=== PATIENT | female | born 1940 | race Caucasian/White ===

== ENCOUNTER 2018-04-14 13:49 | Inpatient (IN) ==
[2018-04-14 15:35] LABS: Baso % (Auto) 0.8 % (0.0-2.0); Eos # (Auto) 0.3 th/mm3 (0.0-0.4); Eos % (Auto) 5.1 % (0.0-4.0); Lymph # (Auto) 0.9 th/mm3 (1.0-4.8); Lymph % (Auto) 17.7 % (9.0-44.0); Mean Corpuscular HGB Conc 31.5 % (32.0-36.0); Mean Corpuscular Hemoglobin 24.2 pg (27.0-34.0); Mean Corpuscular Volume 76.7 fL (80.0-100.0); Mean Platelet Volume 8.5 fL (7.0-11.0); Mono # (Auto) 0.5 th/mm3 (0.0-0.9); Mono % (Auto) 10.6 % (0.0-8.0); Neut # (Auto) 3.4 th/mm3 (1.8-7.7); Neut % (Auto) 65.8 % (16.0-70.0); Platelet Count 240 th/mm3 (150-450); Red Blood Count 2.28 mil/mm3 (4.00-5.30); White Blood Count 5.1 th/mm3 (4.0-11.0)
[2018-04-14 15:46] LABS: Hematocrit 17.5 % (35.0-46.0); Hemoglobin 5.5 gm/dL (11.6-15.3)
--- NOTE | 2018-04-14 15:56 | ED ---
HPI General Chief complaint: Weakness Stated complaint: Poss Blood Transfusion Time Seen by Provider: 04/14/18 14:33 Source: patient Mode of arrival: ambulatory Limitations: no limitations History of Present Illness HPI Narrative: 78 yo F c/o low hgb. Pt has cbc drawn approx 5 days rior and hgb was 7.0 down from 11.0 from approx 1 month prior. SOB and JENKINS reported with palpitation. + Hx anemia with unknown etiology. Pt reports similar prior episodes. Duration of SOB/JENKINS approx one week. No cp at rest. Pt reports symptoms are similar to prior episodes of anemia. Related Data Home Medications Medication Instructions Recorded Confirmed atenolol [Tenormin] 25 mg PO DAILY 04/14/18 04/14/18 atorvastatin [Lipitor] 40 mg PO DAILY 04/14/18 04/14/18 clonazepam [Klonopin] 1 mg PO DAILY PRN 04/14/18 04/14/18 clopidogrel [Plavix] 75 mg PO DAILY 04/14/18 04/14/18 ezetimibe 10 mg PO DAILY 04/14/18 04/14/18 irbesartan 150 mg PO BID 04/14/18 04/14/18 nifedipine 30 mg PO DAILY 04/14/18 04/14/18 Allergies Allergy/AdvReac Type Severity Reaction Status Date / Time No Known Allergies Allergy Verified 04/14/18 14:08 Review of Systems ROS: all other systems reviewed are negative [facility] Social History Social History Substance History: No History of Abuse Second Hand Smoke Exposure: No Smoking Status: Former smoker How Often Do You Have a Drink Containing Alcohol: 4 or more times a week Recent Travel in [facility] within the Last 8 Weeks: No Recent Out of Country Travel within the Last 8 Weeks: No Immunization History Tetanus Immunization: <5 Years Exam Narrative Exam Narrative: GENERAL: 78 yo F, WNWD, NAD SKIN: Focused skin assessment warm/dry. HEAD: Atraumatic. Normocephalic. EYES: Pupils equal and round. No scleral icterus. No injection or drainage. ENT: No nasal bleeding or discharge. Mucous membranes pink and moist. NECK: Trachea midline. No JVD. CARDIOVASCULAR: Regular rate and rhythm. No murmur appreciated. RESPIRATORY: No accessory muscle use. Clear to auscultation. Breath sounds equal bilaterally. GASTROINTESTINAL: Abdomen soft, non-tender, nondistended. Hepatic and splenic margins not palpable. MUSCULOSKELETAL: No obvious deformities. No clubbing. No cyanosis. No edema. NEUROLOGICAL: Awake and alert. No obvious cranial nerve deficits. Motor grossly within normal limits. Normal speech. PSYCHIATRIC: Appropriate mood and affect; insight and judgment normal. Course Initial Documented Vital Signs Temperature 98.8 F 04/14/18 14:05 Pulse Rate 84 04/14/18 14:05 Respiratory Rate 18 04/14/18 14:05 Blood Pressure 152/69 H 04/14/18 14:05 Pulse Oximetry 100 04/14/18 14:05 Last Documented Vital Signs Temperature 98.8 F 04/14/18 18:34 Pulse Rate 72 04/14/18 18:34 Respiratory Rate 18 04/14/18 18:34 Blood Pressure 167/69 H 04/14/18 18:34 Pulse Oximetry 100 04/14/18 18:34 Medical Decision Making MDM Narrative Medical decision making narrative: Hgb is 5.5 today. Two units PRBCs ordered here. Pt will be admitted for blood transfusion. Call to [facility] at 354pm. Pt is hemodynamically stable and appropriate for med/surg store or [facility]. d/w Kanika for [facility] pt will go to [facility] for transfusions Medical Screen Exam Complete: Yes Emergency Medical Condition: Yes Lab Data Result diagrams: 04/14/18 15:00 04/14/18 15:15 Lab Results 04/14/18 04/14/18 04/14/18 Range/Units 15:00 15:15 15:15 WBC 5.1 (4.0-11.0) th/mm3 RBC 2.28 L (4.00-5.30) mil/mm3 Hgb 5.5 L* (11.6-15.3) gm/dL Hct 17.5 L* (35.0-46.0) % MCV 76.7 L (80.0-100.0) fL MCH 24.2 L (27.0-34.0) pg MCHC 31.5 L (32.0-36.0) % RDW 17.0 (11.6-17.2) % Plt Count 240 (150-450) th/mm3 MPV 8.5 (7.0-11.0) fL Neut % (Auto) 65.8 (16.0-70.0) % Lymph % (Auto) 17.7 (9.0-44.0) % Drew % (Auto) 10.6 H (0.0-8.0) % Eos % (Auto) 5.1 H (0.0-4.0) % Baso % (Auto) 0.8 (0.0-2.0) % Neut # (Auto) 3.4 (1.8-7.7) th/mm3 Lymph # (Auto) 0.9 L (1.0-4.8) th/mm3 Drew # (Auto) 0.5 (0.0-0.9) th/mm3 Eos # (Auto) 0.3 (0.0-0.4) th/mm3 Baso # (Auto) 0.0 (0.0-0.2) th/mm3 WBC Differential . Differential Comment Auto diff final Sodium 142 (136-145) meq/L Potassium 4.3 (3.5-5.1) meq/L Chloride 108 H (98-107) meq/L Carbon Dioxide 28.0 (21.0-32.0) meq/L Anion Gap 6 (5-15) meq/L BUN 21 H (7-18) mg/dL Creatinine 0.83 (0.50-1.00) mg/dL Estimated GFR 66 L (>89) mL/min Random Glucose 91 (74-106) mg/dL Calcium 8.1 L (8.5-10.1) mg/dL Blood Type B Positive Blood Type Recheck Required Antibody Screen Positive H Antibody Identification Antigen Identification E Antigen - NEGATIVE MTS Gel Crossmatch See Detail 04/14/18 Range/Units 15:15 WBC (4.0-11.0) th/mm3 RBC (4.00-5.30) mil/mm3 Hgb (11.6-15.3) gm/dL Hct (35.0-46.0) % MCV (80.0-100.0) fL MCH (27.0-34.0) pg MCHC (32.0-36.0) % RDW (11.6-17.2) % Plt Count (150-450) th/mm3 MPV (7.0-11.0) fL Neut % (Auto) (16.0-70.0) % Lymph % (Auto) (9.0-44.0) % Drew % (Auto) (0.0-8.0) % Eos % (Auto) (0.0-4.0) % Baso % (Auto) (0.0-2.0) % Neut # (Auto) (1.8-7.7) th/mm3 Lymph # (Auto) (1.0-4.8) th/mm3 Drew # (Auto) (0.0-0.9) th/mm3 Eos # (Auto) (0.0-0.4) th/mm3 Baso # (Auto) (0.0-0.2) th/mm3 WBC Differential Differential Comment Sodium (136-145) meq/L Potassium (3.5-5.1) meq/L Chloride (98-107) meq/L Carbon Dioxide (21.0-32.0) meq/L Anion Gap (5-15) meq/L BUN (7-18) mg/dL Creatinine (0.50-1.00) mg/dL Estimated GFR (>89) mL/min Random Glucose (74-106) mg/dL Calcium (8.5-10.1) mg/dL Blood Type Blood Type Recheck Antibody Screen Antibody Identification Anti-E Antigen Identification MTS Gel Crossmatch Discharge Plan Discharge Disposition Patient Disposition: ED Admit(ED Internal Use Only) Discharge Order Discharge Orders: ED Use Only Admit Order (Routine); Ordered 04/14/18 Ordered By: Anjel Stack Physicians Team ED Provider: Anjel Stack Attending Provider: Romy Arciniega Status ED Status: Admitted Observation Patient
[2018-04-14 16:09] LABS: Calcium 8.1 mg/dL (8.5-10.1); Potassium 4.3 meq/L (3.5-5.1)
[2018-04-14] MEDS ORDERED: Bisacodyl 10 MG Supp RECTAL PRN (16:52)
[2018-04-14] MEDS ORDERED: Acetaminophen 325 MG Tablet PO PRN (16:52)
[2018-04-14] MEDS ORDERED: clonazePAM 1 MG Tablet PO PRN (17:00)
--- NOTE | 2018-04-14 17:23 | P.HP ---
History of Present Illness Service: Hospitalist Primary Care Physician: Camila Cotto Chief Complaint: Weakness and anemia History of Present Illness: 78-year-old female with a history of chronic anemia, OH with stent, and hyperlipidemia. Admitted to the emergency room for weakness and hemoglobin which dropped from 7.0 to 5.5 in the course of 1 week. History of frequent blood transfusions due to anemia; most recently got 1 unit in November and 1 unit in December of this year. Chronically anticoagulated on Plavix for +10 years. 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 previous she has been followed closely by primary care, hematology and cardiology in [place]. Does not follow with anyone locally but plans to establish. She does have a complaint today of generalized weakness and fatigue which is typical for her when she has severe anemia. Also experiencing some shortness of breath that is worse with exertion. She has no history of breathing problems. Denies any chest pain or palpitations. No nausea vomiting or diarrhea. No fever or chills. She has not noticed any bleeding. No coffee- ground emesis or dark tarry stools. - Diagnosis (1) Weakness (2) Anemia Inpatient Certification: I certify that the inpatient services were ordered in accordance with Medicare regulations governing the order. This includes certification that hospital inpatient services are reasonable and necessary and in the case of services not specified as inpatient-only under 42 CFR 419.22(n), that they are appropriately provided as inpatient services in accordance to with the 2-midnight benchmark under 43 CFR 412.3(e) Review of Systems All other systems reviewed negative except as stated in [facility] - History History Provided By: Patient, Medical Record - Medical History Medical History: Medical History (Last Reviewed 04/14/18 @ 16:59 by TYREE Edge) Anemia Myocardial infarct - Surgical History Surgical History: Surgical History (Last Reviewed 04/14/18 @ 16:59 by TYREE Edge) History of partial hysterectomy Stented coronary artery - Family History Family History: Family History (Last Reviewed 04/14/18 @ 16:59 by TYREE Edge) Other Family history non-contributory - Social History I have reviewed the patient's Social History: Yes - Tobacco History Second Hand Smoke Exposure: No Tobacco Use In Past 30 Days: No Smoking Status: Former smoker - Alcohol History How Often Do You Have a Drink Containing Alcohol: 4 or more times a week - Substance Use History Substance History: No History of Abuse - Travel History Recent Travel in the [place] Within the Last 8 Weeks: No Recent Travel Out of the Country Within the Last 8 Weeks: No - Immunization History Tetanus Immunization: <5 Years Medications and Allergies Active Medications: Active Medications Acetaminophen (Tylenol) 650 mg PO Q4H PRN PRN Reason: Temp > 100.4 Al Hydroxide/Mg Hydroxide (Milk Of Magnesia Liq) 30 ml PO Q12H PRN PRN Reason: Mild Constipation Bisacodyl (Dulcolax Supp) 10 mg RECTAL DAILY PRN PRN Reason: SEVERE CONSITIPATION Lactulose (Lactulose Liq) 30 ml PO DAILY PRN PRN Reason: SEVERE CONSITIPATION Ondansetron HCl (Zofran Inj) 4 mg IV.PUSH Q6H PRN PRN Reason: NAUSEA OR VOMITING Senna/Docusate Sodium (Lana-Colace) 1 tab PO BID BESSY Sennosides (Senokot) 17.2 mg PO Q12H PRN PRN Reason: Moderate Constipation Sodium Chloride (Ns Flush) 2 ml IV.FLUSH BID BESSY Sodium Chloride (Ns Flush) 2 ml IV.FLUSH PRN PRN PRN Reason: FLUSH AFTER USING IV ACCESS Allergies Allergy/AdvReac Type Severity Reaction Status Date / Time No Known Allergies Allergy Verified 04/14/18 14:08 Home Medications Medication Instructions Recorded Confirmed Type atenolol [Tenormin] 25 mg PO DAILY 04/14/18 04/14/18 History atorvastatin [Lipitor] 40 mg PO DAILY 04/14/18 04/14/18 History clonazepam [Klonopin] 1 mg PO DAILY PRN 04/14/18 04/14/18 History clopidogrel [Plavix] 75 mg PO DAILY 04/14/18 04/14/18 History ezetimibe 10 mg PO DAILY 04/14/18 04/14/18 History irbesartan 150 mg PO BID 04/14/18 04/14/18 History nifedipine 30 mg PO DAILY 04/14/18 04/14/18 History Exam Vital signs: Vital Signs 04/14/18 14:05 04/14/18 15:20 Temperature 98.8 F Pulse Rate 84 74 Respiratory Rate 18 17 Blood Pressure 152/69 H 135/61 Pulse Oximetry 100 98 Intake & Output 04/13/18 04/14/18 04/14/18 18:59 06:59 18:59 Weight 58.513 kg Narrative: GENERAL: Well-nourished, well-developed adult female in no obvious distress. SKIN: Warm and dry. HEAD: Atraumatic. Normocephalic. CARDIOVASCULAR: Regular rate and rhythm. RESPIRATORY: No accessory muscle use. Clear to auscultation. Breath sounds equal bilaterally. GASTROINTESTINAL: Abdomen soft, non-tender, distended. Positive bowel sounds. MUSCULOSKELETAL: Extremities without clubbing, or cyanosis. Bilateral ankle edema +1. No obvious deformities. NEUROLOGICAL: Awake and alert. No obvious cranial nerve deficits. Motor grossly within normal limits. Normal speech. PSYCHIATRIC: Appropriate mood and affect; insight and judgment good. Results - Labs CBC & Chem 7: 04/14/18 15:00 04/14/18 15:15 Labs: Laboratory Results - last 24 hr 04/14/18 04/14/18 04/14/18 15:00 15:15 15:15 WBC 5.1 RBC 2.28 L Hgb 5.5 L* Hct 17.5 L* MCV 76.7 L MCH 24.2 L MCHC 31.5 L RDW 17.0 Plt Count 240 MPV 8.5 Neut % (Auto) 65.8 Lymph % (Auto) 17.7 [place] % (Auto) 10.6 H Eos % (Auto) 5.1 H Baso % (Auto) 0.8 Neut # (Auto) 3.4 Lymph # (Auto) 0.9 L [place] # (Auto) 0.5 Eos # (Auto) 0.3 Baso # (Auto) 0.0 WBC Differential . Differential Comment Auto diff final Sodium 142 Potassium 4.3 Chloride 108 H Carbon Dioxide 28.0 Anion Gap 6 BUN 21 H Creatinine 0.83 Estimated GFR 66 L Random Glucose 91 Calcium 8.1 L Blood Type B Positive Blood Type Recheck Required Antibody Screen Positive H MTS Gel Crossmatch See Detail Caprini VTE Risk Assessment Caprini VTE Risk Assessment: No/Low Risk (score <= 1) Caprini Risk Assessment Model: Point Value = 1 Point Value = 2 Point Value = 3 Point Value = 5 Age 41-60 Minor surgery BMI > 25 kg/m2 Swollen legs Varicose veins or History of unexplained or recurrent spontaneous Oral contraceptives or hormone replacement Sepsis (< 1 month) Serious lung disease, including pneumonia (< 1 month) Abnormal pulmonary function Acute myocardial infarction Congestive heart failure (< 1 month) History of inflammatory bowel disease Medical patient at bed rest Age 61-74 Arthroscopic surgery Major open surgery (> 45 min) Laparoscopic surgery (> 45 min) Malignancy Confined to bed (> 72 hours) Immobilizing plaster cast Central venous access Age >= 75 History of VTE Family history of VTE Factor V Leiden Prothrombin [id number] Lupus anticoagulant Anticardiolipin antibodies Elevated serum homocysteine Heparin-induced thrombocytopenia Other congenital or acquired thrombophilia Stroke (< 1 month) Elective arthroplasty Hip, pelvis, or leg fracture Acute spinal cord injury (< 1 month) Prophylaxis Regimen: Total Risk Factor Score Risk Level Prophylaxis Regimen 0-1 Low Early ambulation 2 Moderate Order ONE of the following: *Sequential Compression Device (SCD) *Heparin 5000 units SQ BID 3-4 Higher Order ONE of the following medications: *Heparin 5000 units SQ TID *Enoxaparin/Lovenox 40 mg SQ daily (WT < 150 kg, CrCl > 30 mL/min) *Enoxaparin/Lovenox 30 mg SQ daily (WT < 150 kg, CrCl > 10-29 mL/min) *Enoxaparin/Lovenox 30 mg SQ BID (WT < 150 kg, CrCl > 30 mL/min) AND/OR *Sequential Compression Device (SCD) 5 or more Highest Order ONE of the following medications: *Heparin 5000 units SQ TID (Preferred with Epidurals) *Enoxaparin/Lovenox 40 mg SQ daily (WT < 150 kg, CrCl > 30 mL/min) *Enoxaparin/Lovenox 30 mg SQ daily (WT < 150 kg, CrCl > 10-29 mL/min) *Enoxaparin/Lovenox 30 mg SQ BID (WT < 150 kg, CrCl > 30 mL/min) AND *Sequential Compression Device (SCD) Assessment and Plan - Assessment (1) Weakness Code(s): R53.1 - Weakness Status: Acute (2) Anemia Code(s): D64.9 - Anemia, unspecified Status: Acute - Plan 78-year-old female with a history of chronic anemia, OH with stent, and hyperlipidemia. Admitted to the emergency room for weakness and hemoglobin which dropped from 7.0 to 5.5 in the course of 1 week. History of frequent blood transfusions due to anemia; most recently got 1 unit in November and 1 unit in December of this year. Chronic anemia; symptomatic with weakness and SOB. -2 units PRBC ordered by ED physician -Patient has plans to follow-up with Dr. Sanders as outpatient; has previously been extensively worked up by materials supervisor in [place] with no specific dx. DVT prophylaxis: Ambulatory; on Plavix Discharge planning: Likely home when stable
[2018-04-14 22:23] VITALS: RESP 18
[2018-04-14] MEDS: Senna/Docusate Sodium 8.6/50 MG Tablet PO SCH (23:13)
[2018-04-15 06:57] LABS: Hematocrit 29.9 % (35.0-46.0); Hemoglobin 9.7 gm/dL (11.6-15.3)
[2018-04-15] MEDS: Senna/Docusate Sodium 8.6/50 MG Tablet PO SCH (08:43)
[2018-04-15] MEDS ORDERED: Ezetimibe 10 MG Tablet PO SCH (09:00)
[2018-04-15] MEDS ORDERED: Atenolol 25 MG Tablet PO SCH (09:00)
[2018-04-15 09:34] VITALS: BP 178/79; PULSE 75; TEMP 98.6; O2SAT 95
--- NOTE | 2018-04-15 18:06 | P.DS ---
DS: Providers Date of admission: 04/14/18 18:10 Primary care physician: Camila Cotto Brief History from admission: Admit Dx. Symptomatic anemia, acute on chronic DC Dx. Symptomatic anemia, acute on chronic s/p transfusion CAD w stent dyslipidemia htn 78-year-old female with a history of chronic anemia, PR with stent, and hyperlipidemia. Admitted to the emergency room for weakness and hemoglobin which dropped from 7.0 to 5.5 in the course of 1 week. History of frequent blood transfusions due to anemia; most recently got 1 unit in November and 1 unit in December of this year. Chronically anticoagulated on Plavix for +10 years. 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 previous she has been followed closely by primary care, hematology and cardiology in [place]. Does not follow with anyone locally but plans to establish. She does have a complaint today of generalized weakness and fatigue which is typical for her when she has severe anemia. Also experiencing some shortness of breath that is worse with exertion. She has no history of breathing problems. Denies any chest pain or palpitations. No nausea vomiting or diarrhea. No fever or chills. She has not noticed any bleeding. No coffee- ground emesis or dark tarry stools. Admit DX. DS: Diagnosis Discharge Diagnosis (1) Weakness: Status: Acute (2) Anemia: Status: Acute DS: Summary Patient had transfusion of 2 units PRBC and tolerated well, repeat HH was above 9. 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 She was clinically much improved and wished to go home for outpatient followup. Discussed diagnosis and need for followup w heme and GI. We discussed continuation of plavix and signs of gi bleed to monitor. Time Spent with Patient Total time spent providing and/or coordinating discharge services: Less than 30 minutes Status at Discharge Functional status at discharge: independent ambulation Quality: VTE Deep Vein Thrombosis/Pulmonary Embolism Present on Admission: No Exam Narrative Exam Narrative: wdwn w 78yo f aaox3 nad heart s1s2 reg prom s2 lungs clear no wrr abd soft nondt pos bs ext no edema, no cce Results Labs on day of discharge: Labs from last 24 hours 04/15/18 04/14/18 06:00 15:15 Hgb 9.7 L D Hct 29.9 L Blood Type B Positive Blood Type Recheck Required Antibody Screen Positive H Antigen Identification E Antigen - NEGATIVE MTS Gel Crossmatch See Detail Discharge Plan Discharge Disposition Patient Disposition: 01 Discharge Home Discharge Condition Condition: Good Discharge Order Discharge Orders: Discharge Order (Routine); Ordered 04/15/18 Ordered By: Thi Gilbert Physicians Team Attending Provider: Thi Gilbert Rxs /Orders / Referrals /Forms Prescriptions: Continue atorvastatin [Lipitor] 40 mg Tablet 40 mg PO DAILY RF: 0 clonazepam [Klonopin] 1 mg Tablet 1 mg PO DAILY PRN (Reason: Anxiety) RF: 0 atenolol [Tenormin] 25 mg Tablet 25 mg PO DAILY RF: 0 nifedipine 30 mg Tablet Extended Release 30 mg PO DAILY RF: 0 clopidogrel [Plavix] 75 mg Tablet 75 mg PO DAILY RF: 0 irbesartan 150 mg Tablet 150 mg PO BID RF: 0 ezetimibe 10 mg Tablet 10 mg PO DAILY RF: 0 Referrals: Camila Cotto [Other] - See Instructions ( Please call the physician's office to book the appointment to be seen within [2 d ]. HEMATOLOGY Your Health Problems: Goals to Promote Your Health: To prevent worsening of your condition To maintain your health at the optimal level Directions to Meet Your Goals: Take your medications as prescribed Follow your dietary instruction Follow activity as directed Keep your appointments as scheduled Take your immunizations and boosters as scheduled If your symptoms worsen call your PCP If no PCP go to Urgent Care or Emergency Room Smoking is dangerous to your health. Avoid second hand smoke. You may reach the 24-hour crisis hotline for domestic abuse at . Please call the physician's office to book the appointment to be seen within [].) Discharge Instructions Patient Printed Instructions: Iron Rich Diet (DC), Iron Deficiency Anemia (DC) , Anemia (DC), Blood Transfusion (DC) Post Discharge Care Plan Care Plan Goals: Please call Dr Camila Calderon office to book the appointment to be seen within 2 Days. HEMATOLOGY Your Health Problems: Goals to Promote Your Health: * To prevent worsening of your condition * To maintain your health at the optimal level Directions to Meet Your Goals: * Take your medications as prescribed * Follow your dietary instruction * Follow activity as directed * Keep your appointments as scheduled * Take your immunizations and boosters as scheduled * If your symptoms worsen call your PCP * If no PCP go to Urgent Care or Emergency Room Smoking is dangerous to your health. Avoid second hand smoke. You may reach the 24-hour crisis hotline for domestic abuse at . Status ED Status: Left Department Discharge Information Discharge Date/Time: 04/15/18 11:58
== END 2018-04-15 11:58 | disposition home or self-care (01) ==
LOC: NEPC 13:49 → INTOOBSV 16:47 → NEDA 16:47 → PH3 21:45
PROVIDERS: ADMIT Internal Medicine; ATTEND Internal Medicine
DX: Z87.891 Personal history of nicotine dependence; E78.5 Hyperlipidemia, unspecified; R53.1 Weakness; Z95.5 Presence of coronary angioplasty implant and graft; D64.9 Anemia, unspecified; I25.2 Old myocardial infarction; Z79.02 Long term (current) use of antithrombotics/antiplatelets
CPT/HCPCS: 36430; 80048; 85014; 85018; 85025; 86077; 86850; 86870; 86900; 86901; 86902; 86920; 86922; P9016